=== PATIENT | male | born 1980 | race Caucasian/White ===

== ENCOUNTER 2017-05-07 22:36 | Emergency (ER) | payer MEDICARE, OTHER ==
[2017-05-08 00:21] LABS: HEMOGLOBIN 15.2 gm/dl (14.0-17.5); RED BLOOD COUNT 5.3 M/UL (4.20-5.50)
[2017-05-08 00:46] LABS: BUN/CREATININE RATIO 18 (0-10)
== END 2017-05-08 02:06 | disposition home or self-care (01) ==
LOC: ER1 22:36
PROVIDERS: Physician Assistant
DX: R10.13 Epigastric pain (principal); F17.210 Nicotine dependence, cigarettes, uncomplicated; H54.42 Blindness, left eye, normal vision right eye; Z87.442 Personal history of urinary calculi
CPT/HCPCS: 36415; 80053; 81001; 82550; 82553; 83690; 83874; 84484; 85025; 87086; 93005; 96374; 96375; 99284; J2270; J2405; J7050; Q9962

== ENCOUNTER → 2020-09-07 | Outpatient (CLI) | payer MEDICARE, OTHER ==
[~2020-09-07] MED LIST: CELEXA20 MG PO; HYDROCODON-ACE1 EAC2 PO; KLONOPIN0.5 MG PO; LIPITOR10 MG PO; NEURONTIN 300300 MG PO; NORCO 5-325 TA1 EACH PO; NORCO 7.5-3251 EACH PO; OMNICEF 300 MG300 MG PO; PREDNISONE20 MG PO; PROTONIX40 MG PO; RANEXA500 MG PO; VALTREX1000 MG PO; ZANTAC150 MG PO; ZITHROMAX250 MG PO; ZOVIRAX 800 MG800 MG PO
== END ==
LOC: KOH-I 13:54
DX: R07.9 Chest pain, unspecified (principal)
CPT/HCPCS: 71046

== ENCOUNTER → 2020-09-08 | Outpatient (CLI) | payer MEDICARE, OTHER | LOC: CT 12:53 | DX: R09.02 Hypoxemia (principal) | CPT/HCPCS: Q9967 ==

== ENCOUNTER → 2021-05-24 | Outpatient (CLI) | payer MEDICARE | LOC: HEART 5 10:41 | DX: R07.9 Chest pain, unspecified (principal); R00.2 Palpitations; I07.1 Rheumatic tricuspid insufficiency; I37.1 Nonrheumatic pulmonary valve insufficiency | CPT/HCPCS: 93306 ==

== ENCOUNTER → 2021-08-02 | Outpatient (CLI) | payer MEDICARE | LOC: HEART 5 06-13 11:30 | DX: R00.2 Palpitations (principal) ==

== ENCOUNTER → 2021-11-16 | Outpatient (CLI) | payer MEDICARE | LOC: EMI 11-07 11:00 | DX: M54.50 Low back pain, unspecified (principal); M47.816 Spondylosis without myelopathy or radiculopathy, lumbar region; M47.817 Spondylosis without myelopathy or radiculopathy, lumbosacral region; M51.86 Other intervertebral disc disorders, lumbar region; M51.87 Other intervertebral disc disorders, lumbosacral region; M48.061 Spinal stenosis, lumbar region without neurogenic claudication; M48.07 Spinal stenosis, lumbosacral region | CPT/HCPCS: 72148 ==